=== PATIENT | male | born 1990 | race African-American/Black ===

== ENCOUNTER 2018-09-05 21:08 | Emergency (ER) | payer MEDICAID ==
[~2018-09-05] VITALS: Ht 185.4 cm; Wt 104.7 kg
[2018-09-05] MEDS ORDERED: KETOROLAC 60MG/2ML VIAL IM STA (22:57)
[2018-09-06 00:13] VITALS: BP 145/95
== END 2018-09-06 00:14 | disposition home or self-care (01) ==
LOC: ER 22:51
DX: S30.0XXA Contusion of lower back and pelvis, initial encounter (principal); F12.10 Cannabis abuse, uncomplicated; Z88.0 Allergy status to penicillin; W18.2XXA Fall in (into) shower or empty bathtub, initial encounter; Y93.E1 Activity, personal bathing and showering; Y92.012 Bathroom of single-family (private) house as the place of occurrence of the external cause
CPT/HCPCS: 72100; 96372; 99283; J1885

== ENCOUNTER 2018-11-27 19:02 | Emergency (ER) | payer MEDICAID ==
[~2018-11-27] VITALS: Ht 185.4 cm; Wt 105.0 kg
[2018-11-27 19:26] VITALS: BP 132/81
[2018-11-27] MEDS ORDERED: HYDROCODONE/ACETAMINOPHEN 5/325MG TABLET PO ONE (20:00)
[2018-11-27] MEDS ORDERED: ONDANSETRON 4MG ODT PO ONE (20:00)
== END 2018-11-27 20:07 | disposition home or self-care (01) ==
LOC: ER 19:24
DX: K08.89 Other specified disorders of teeth and supporting structures (principal); I10 Essential (primary) hypertension; R73.03 Prediabetes; Z88.3 Allergy status to other anti-infective agents; Z88.0 Allergy status to penicillin
CPT/HCPCS: 99283

== ENCOUNTER 2019-06-17 18:31 | Emergency (ER) | payer MEDICAID ==
[~2019-06-17] VITALS: Ht 185.4 cm; Wt 100.0 kg
[2019-06-17] MEDS ORDERED: IBUPROFEN 600MG TABLET PO ONE (19:45)
[2019-06-17 20:44] VITALS: BP 127/77
== END 2019-06-17 20:55 | disposition home or self-care (01) ==
LOC: ER 18:31
DX: J02.9 Acute pharyngitis, unspecified (principal); E11.9 Type 2 diabetes mellitus without complications; I10 Essential (primary) hypertension; F12.10 Cannabis abuse, uncomplicated; Z88.0 Allergy status to penicillin
CPT/HCPCS: 87070; 87430; 99283

== ENCOUNTER 2023-03-14 17:36 | Emergency (ER) | payer MEDICAID ==
[~2023-03-14] VITALS: Ht 188 cm; Wt 100.0 kg
[2023-03-14 17:39] VITALS: O2SAT 98
[2023-03-14 19:02] LABS: HEMATOCRIT 43.8 % (42.0-52.0); MEAN CORPUSCULAR HEMOGLOBIN 27.4 pg (28.0-32.0); MEAN CORPUSCULAR HGB CONC 34.3 g/dL (31.0-37.0); MEAN CORPUSCULAR VOLUME 79.9 fL (80.0-94.0); PLATELET 330 x1000/uL (130-400); RED BLOOD CELL COUNT 5.49 mill/uL (4.7-6.1); RED CELL DISTRIBUTION WIDTH 12.8 % (11.6-14.6); WHITE BLOOD COUNT 8.8 x1000/uL (4.5-11.0)
[2023-03-14 19:15] LABS: CHLORIDE 104 mEq/L (98-107); INDEX HEMOLYSI 1 (1-3); INDEX ICTERIC 1 (1-4); INDEX LIPEMIC 1 (1-3); POTASSIUM 4.8 mEq/L (3.5-5.1); SODIUM 138 mEq/L (136-145)
[2023-03-14 19:26] LABS: ALANINE AMINOTRANSFERASE 24 IU/L (13-61); ALBUMIN 3.9 g/dL (3.4-5.0); ASPARTATE AMINOTRANSFERASE 12 IU/L (15-37); BILIRUBIN TOTAL 0.6 mg/dL (0.1-1.0); CALCIUM 9.4 mg/dL (8.5-10.1); CARBON DIOXIDE 33 mEq/L (21-32); CREATININE 0.9 mg/dL (0.6-1.3); GLUCOSE 205 mg/dL (70-105); PROTEIN TOTAL 8.4 g/dL (6.0-8.3); UREA NITROGEN BLOOD 9 mg/dL (7-21)
[2023-03-14 20:00] VITALS: BP 130/74; PULSE 90; RESP 16; TEMP 98.3
== END 2023-03-14 20:00 | disposition home or self-care (01) ==
LOC: ER 17:36
DX: K52.9 Noninfective gastroenteritis and colitis, unspecified (principal); F12.90 Cannabis use, unspecified, uncomplicated; E11.9 Type 2 diabetes mellitus without complications; I10 Essential (primary) hypertension; Z79.899 Other long term (current) drug therapy; Z88.0 Allergy status to penicillin; Z88.8 Allergy status to other drugs, medicaments and biological substances
CPT/HCPCS: 36415; 80053; 85027; 99283

== ENCOUNTER 2023-05-12 10:11 | Emergency (ER) | payer MEDICAID ==
[~2023-05-12] VITALS: Ht 182.9 cm; Wt 100.0 kg
[2023-05-12 10:18] VITALS: O2SAT 97
[2023-05-12] MEDS ORDERED: KETOROLAC 30MG/ML VIAL IM ONE (10:45)
[2023-05-12] MEDS ORDERED: KETOROLAC 30MG/ML VIAL IM NR ×2 (12:22→12:30)
[2023-05-12] MEDS ORDERED: NAPR-1176 MT (12:43)
[2023-05-12] MEDS ORDERED: LIDO700A15 TP (12:43)
[2023-05-12 13:01] VITALS: BP 128/81; PULSE 86; RESP 18; TEMP 98.2
== END 2023-05-12 13:02 | disposition home or self-care (01) ==
LOC: ER 10:11
DX: M54.50 Low back pain, unspecified (principal); E11.9 Type 2 diabetes mellitus without complications; I10 Essential (primary) hypertension; F12.90 Cannabis use, unspecified, uncomplicated; Z98.890 Other specified postprocedural states; Z88.0 Allergy status to penicillin; Z88.8 Allergy status to other drugs, medicaments and biological substances
CPT/HCPCS: 99283; 96372; J1885

== ENCOUNTER 2023-10-17 15:21 | Emergency (ER) | payer MEDICAID ==
[~2023-10-17] VITALS: Ht 185.4 cm; Wt 100.0 kg
[~2023-10-17 15:21] MED LIST: LIDO700A15 TP; NAPR-1176 MT
[2023-10-17 15:42] VITALS: O2SAT 100
[2023-10-17 15:58] LABS: BASOPHILS % 0.4 % (0.0-2.0); HEMATOCRIT. 38.4 % (42.0-52.0); HEMOGLOBIN. 13.2 g/dL (14.0-18.0); LYMPHOCYTES % 16.5 % (20.0-50.0); MEAN CORPUSCULAR HEMOGLOBIN 28.2 pg (28.0-32.0); MEAN CORPUSCULAR HGB CONC 34.5 g/dL (31.0-37.0); MEAN CORPUSCULAR VOLUME 81.7 fL (80.0-94.0); MEAN PLATELET VOLUME 7.4 fl (7.4-10.4); MONOCYTES % 4.6 % (2.0-8.0); NEUTROPHILS % 77.5 % (40.0-76.0); PLATELET 322 x1000/uL (130-400); RED CELL DISTRIBUTION WIDTH 12.7 % (11.6-14.6); WHITE BLOOD COUNT 11.2 x1000/uL (4.5-11.0)
[2023-10-17 16:02] LABS: CHLORIDE 104 mEq/L (98-107); POTASSIUM 4.5 mEq/L (3.5-5.1); SODIUM 139 mEq/L (136-145)
[2023-10-17 16:03] LABS: CALCIUM 9.4 mg/dL (8.7-10.4); CARBON DIOXIDE 32 mEq/L (21-32)
[2023-10-17 16:08] LABS: CREATININE 1.1 mg/dL (0.6-1.3); GLUCOSE 222 mg/dL (70-105); UREA NITROGEN BLOOD 8 mg/dL (9-23)
[2023-10-17 16:10] LABS: ALANINE AMINOTRANSFERASE 12 IU/L (10-49); ALBUMIN 4.3 g/dL (3.2-4.8); ASPARTATE AMINOTRANSFERASE 12 IU/L (<34); BILIRUBIN DIRECT 0.2 mg/dL (<=3.0); BILIRUBIN TOTAL 0.5 mg/dL (0.1-1.0)
[2023-10-17 16:34] VITALS: BP 129/80; PULSE 86; RESP 15; TEMP 98.9
== END 2023-10-17 16:37 | disposition home or self-care (01) ==
LOC: ER 15:21
DX: K52.9 Noninfective gastroenteritis and colitis, unspecified (principal); E11.65 Type 2 diabetes mellitus with hyperglycemia; I10 Essential (primary) hypertension; F12.10 Cannabis abuse, uncomplicated; Z88.0 Allergy status to penicillin
CPT/HCPCS: 36415; 80048; 80076; 85025; 99283

== ENCOUNTER 2024-03-22 18:19 | Emergency (ER) | payer MEDICAID ==
[~2024-03-22] VITALS: Ht 185.4 cm; Wt 97.5 kg
[2024-03-22 19:10] VITALS: O2SAT 100
[2024-03-22] MEDS ORDERED: SULFAMETHOXAZOLE/TRIMETHOPRIM 800/160MG TABLET PO STA (20:21)
[2024-03-22] MEDS ORDERED: SULF1TAB48 MT (20:24)
[2024-03-22] MEDS ORDERED: LEVO750T68 MT (20:24)
[2024-03-22] MEDS: LEVOFLOXACIN 250MG TABLET PO ONE (20:30)
[2024-03-22] MEDS: SULFAMETHOXAZOLE/TRIMETHOPRIM 800/160MG TABLET PO NR (20:45)
[2024-03-22 20:56] VITALS: BP 135/67; PULSE 82; RESP 16; TEMP 36.61404; O2SAT 100
== END 2024-03-22 20:57 | disposition home or self-care (01) ==
LOC: ER 18:19
DX: L97.421 Non-pressure chronic ulcer of left heel and midfoot limited to breakdown of skin (principal); F12.10 Cannabis abuse, uncomplicated; E11.9 Type 2 diabetes mellitus without complications; Z88.0 Allergy status to penicillin; Z98.890 Other specified postprocedural states
CPT/HCPCS: 99283

== ENCOUNTER 2024-05-29 16:26 | Emergency (ER) | payer MEDICAID ==
[~2024-05-29] VITALS: Ht 185.4 cm; Wt 92.2 kg
[~2024-05-29 16:26] MED LIST changes: +LEVO750T68 MT; +SULF1TAB48 MT
[2024-05-29 16:39] VITALS: O2SAT 99
[2024-05-29] MEDS ORDERED: ONDA-239 PO (19:08)
[2024-05-29] MEDS ORDERED: LOPE2CAP14 MT (19:08)
[2024-05-29 19:40] VITALS: BP 106/73; PULSE 110; RESP 18; TEMP 37.22520; O2SAT 100
== END 2024-05-29 19:43 | disposition home or self-care (01) ==
LOC: ER 16:26
DX: K52.9 Noninfective gastroenteritis and colitis, unspecified (principal); B34.9 Viral infection, unspecified; F12.90 Cannabis use, unspecified, uncomplicated; E11.9 Type 2 diabetes mellitus without complications; Z88.0 Allergy status to penicillin
CPT/HCPCS: 99283